=== PATIENT | male | born 1970 | race Caucasian/White ===

== ENCOUNTER 2016-11-08 19:56 | Emergency (ER) | payer OTHER ==
[2016-11-08] MEDS ORDERED: predniSONE 20 MG TAB PO ONE (20:24)
--- NOTE | 2016-11-08 20:27 | EDPHY ---
H & P Time Seen by Provider: 11/08/16 20:12 HPI/ROS: CHIEF COMPLAINT: Hearing loss in the right ear HISTORY OF PRESENT ILLNESS: Patient just returned from [facility]. About 36 hours ago he started feeling fullness in his right ear like he was [place]" and then he developed sudden onset hearing loss at 8:00 p.m. Monday time. For the past 24 hours he has not been able to hear out of his right ear. REVIEW OF SYSTEMS: No trauma, no ear drainage, no ear pain. No headache, no other neurologic symptoms. PAST MEDICAL HISTORY: Hypertension Social history: Was living in [facility] in a house share and [place] from the [place] just now. Lives in [place], will be in [place] overnight tonight. General Appearance: Alert and conversant, cooperative. Right tympanic membrane is normal and ear canals normal. He does not have evidence of redness or fluid behind it. Left tympanic membrane is normal. Patient can hear a tuning fork when the end is pressed on his mastoid but can't hear it when it is held just outside his right ear. Oropharynx is normal. Normal speech. Face is symmetric. Emergency Department course/MDM: Patient has sudden onset unilateral probable sensorineural hearing loss, no trauma, normal external ear exam. Discussed in detail with ENT Dr. Garg at 2024 who recommends single dose of oral 60 mg prednisone and office follow-up early tomorrow morning for evaluation by ENT. Discussed with the patient who states agreement and understanding. Smoking Status: Never smoked Constitutional: Initial Vital Signs Temperature (C) 36.5 C 11/08/16 20:07 Heart Rate 75 11/08/16 20:07 Respiratory Rate 16 11/08/16 20:07 Blood Pressure 122/80 H 11/08/16 20:07 O2 Sat (%) 98 11/08/16 20:07 O2 Delivery Mode Room Air Allergies/Adverse Reactions: No Known Allergies Allergy (Verified 06/26/13 08:13) Home Medications: Medication Instructions Recorded NK [No Known Home Meds] 11/08/16 MDM/Departure - MDM Medications Given: Discontinued Medications Prednisone (Prednisone) 60 mg PO EDNOW ONE Stop: 11/08/16 20:25 Last Admin: 11/08/16 20:36 Dose: 60 mg - Depart Disposition: Home, Routine, Self-Care Clinical Impression: Hearing loss Qualifiers: Hearing loss type: unspecified Laterality: right Qualified Code(s): H91.91 - Unspecified hearing loss, right ear Condition: Good Instructions: Hearing Loss (ED) Additional Instructions: ENT Dr. Garg will call you tomorrow morning to arrange appointment. Referrals: [facility] [Other] - As per Instructions Mary Garg MD [Medical Doctor] - 11/09/16
[2016-11-08 20:42] VITALS: BP 135/96; PULSE 65; RESP 20; TEMP 98.6; O2SAT 95
== END 2016-11-08 20:42 | disposition home or self-care (01) ==
DX: H91.91 Unspecified hearing loss, right ear (principal); I10 Essential (primary) hypertension